=== PATIENT | male | born 1935 | race Caucasian/White ===

== ENCOUNTER 2020-02-02 13:31 | Outpatient (CLI) | payer MEDICARE | END 2020-02-02 13:32 | disposition critical access hospital (66) | LOC: EMS 13:31 | PROVIDERS: ATTEND Surgery | DX: R55 Syncope and collapse (principal) | CPT/HCPCS: A0425; A0427 ==

== ENCOUNTER 2020-02-02 14:02 | Emergency (ER) | payer MEDICARE ==
--- NOTE | 2020-02-02 14:19 | ED Physician Documentation ---
History of Present Illness - Stated complaint Stated Complaint: ALOC - Chief complaint Chief Complaint: Neuro - Additonal information Additional information: 84-year-old male brought into the emergency department for altered level of consciousness and a syncopal event. This gentleman reports to me that he was trying to appraise the house and he fainted. He did does not remember feeling ill or having chest pain or shortness of breath. He last remembered being in the house and then waking up in the ambulance. EMS was concerned that he may have had garbled speech though his speech is fluid for me. EMS reported as well that they felt he was posictal, though no seizure activity had been witnessed or reported He is somewhat confused. Reports that he lives in [place] but was driven up to [facility] to complete a house appraisal. He is unsure of medications he takes or his past medical history. He does report that he has fainted many times in the past but they always let him out of the hospital. 1520: Nursing staff has called the patient's pharmacy and obtain a list of medications. It does appear that he is taking 2 seizure medications therefore the loss of consciousness and single episode may be related to a seizure history. Review of Systems Constitutional: denies: Fever, Chills Cardiac: denies: Chest pain / pressure, Palpitations Respiratory: denies: Dyspnea, Cough GI: denies: Abdominal Pain, Nausea, Vomiting : denies: Dysuria Skin: reports: Reviewed and negative Musculoskeletal: reports: Reviewed and negative Neurologic: reports: Difficulty speaking (on scene with ems?), Syncope, Confuse d, Altered mental status, LOC. denies: Headache, Head injury Psychiatric: denies: Depressed, Suicidal Endocrine: reports: Reviewed and negative PD PAST MEDICAL HISTORY - Present Medications Home Medications: Ambulatory Orders Medication Instructions Recorded Confirmed Clopidogrel [Plavix] 75 mg PO DAILY 02/02/20 02/02/20 Levetiracetam [Keppra] 3,000 mg PO DAILY 02/02/20 02/02/20 Metoprolol Succinate [Toprol Xl] 25 mg PO DAILY 02/02/20 02/02/20 Perampanel [Fycompa] 8 mg PO DAILY 02/02/20 02/02/20 Topiramate [Topamax] 200 mg PO BID 02/02/20 02/02/20 lamoTRIgine [Lamictal] 400 mg PO DAILY 02/02/20 02/02/20 - Allergies Allergies/Adverse Reactions: Allergies Allergy/AdvReac Type Severity Reaction Status Date / Time No Known Drug Allergies Allergy Verified 02/02/20 14:12 PD ED PE EXPANDED - General General: Alert, No acute distress, Well developed/nourished (gentleman is wearing a business suit) - HEENT HEENT: PERRL, EOMI, Moist mucous membranes - Neck Neck: No tenderness. No: JVD present - Cardiac Cardiac: Regular Rate, Murmur Present, Radial strong equal, Pedal strong equal, Cap refill < 2 sec - Respiratory Respiratory: Clear to ausultation elva. No: Distress, Labored - Abdomen Abdomen: Normal Bowel sounds. No: Tender to palpation - Derm Derm: Normal color. No: Rash - Neuro Neuro: Confused, CNII-XII intact, Normal finger nose, Normal speech - GCS Eye Opening: Spontaneous Motor: Obeys Commands Verbal: Confused Total: 14 Results - Vitals Vitals: Vital Signs - 24 hr 02/02/20 02/02/20 14:07 14:53 Temperature 36.6 C Heart Rate 85 84 Respiratory 16 23 Rate Blood Pressure 134/80 H O2 Saturation 98 95 Oxygen O2 Source Room air - EKG (time done) 1415 Rate: Rate (enter#) (84) Rhythm: NSR [place]: Normal Intervals: Normal [place] QRS: Normal Ischemia: Q waves (inferior) Compare to prior EKG: Old EKG unavailable Computer interpretation: Agree with computer - Labs Labs: Laboratory Tests 02/02/20 02/02/20 02/02/20 15:01 15:01 15:01 WBC 7.9 RBC 4.75 Hgb 15.4 Hct 47.3 MCV 99.6 H MCH 32.4 H MCHC 32.6 RDW 12.6 Plt Count 212 MPV 9.0 Neut # (Auto) 5.8 Lymph # (Auto) 1.0 L Cassia # (Auto) 0.6 Eos # (Auto) 0.3 Baso # (Auto) 0.1 Absolute Nucleated RBC 0.00 Nucleated RBC % 0.0 PT INR Sodium 140 Potassium 4.1 Chloride 106 Carbon Dioxide 25 Anion Gap 9.0 BUN 36 H Creatinine 1.2 Estimated GFR (MDRD) 58 L Glucose 106 H Calcium 9.3 Total Bilirubin 0.7 AST 20 ALT 21 Alkaline Phosphatase 78 Troponin I High Sens 8.6 Total Protein 6.5 L Albumin 4.1 Globulin 2.4 Albumin/Globulin Ratio 1.7 Lipase 32 Urine Color Urine Clarity Urine pH Ur Specific Douglas Urine Protein Urine Glucose (UA) Urine Ketones Urine Occult Blood Urine Nitrite Urine Bilirubin Urine Urobilinogen Ur Leukocyte Esterase Ur Microscopic Review Urine Culture Comments 02/02/20 02/02/20 15:01 15:50 WBC RBC Hgb Hct MCV MCH MCHC RDW Plt Count MPV Neut # (Auto) Lymph # (Auto) Cassia # (Auto) Eos # (Auto) Baso # (Auto) Absolute Nucleated RBC Nucleated RBC % PT 12.9 H INR 1.2 Sodium Potassium Chloride Carbon Dioxide Anion Gap BUN Creatinine Estimated GFR (MDRD) Glucose Calcium Total Bilirubin AST ALT Alkaline Phosphatase Troponin I High Sens Total Protein Albumin Globulin Albumin/Globulin Ratio Lipase Urine Color YELLOW Urine Clarity CLEAR Urine pH 6.5 Ur Specific Douglas 1.020 Urine Protein TRACE Urine Glucose (UA) NEGATIVE Urine Ketones NEGATIVE Urine Occult Blood NEGATIVE Urine Nitrite NEGATIVE Urine Bilirubin NEGATIVE Urine Urobilinogen 0.2 (NORMAL) Ur Leukocyte Esterase NEGATIVE Ur Microscopic Review NOT INDICATED Urine Culture Comments NOT INDICATED - Rads (name of study) CT head Radiology: Final report received (No CT evidence of acute intracranial process. Age-appropriate exam.) cxr Radiology: Final report received (Mild pulmonary vascular congestion. No focal infiltrate or pneumothorax.) PD MEDICAL DECISION MAKING - ED course Complexity details: reviewed results, re-evaluated patient, considered differential, d/w patient ED course: This is an 84-year-old well-appearing gentleman that was brought to the emergency department for a syncopal event. Patient lives in [place] and was [place]. Patient was somewhat confused and was unsure of his medical history or the medications he takes. EMS had reported that he may appeared post ictal though no seizure activity has been reported. Nursing staff was able to obtain a list of his medications and it does include to antiepileptics. His EKG is nonischemic. No previous for comparison. High-sensitivity troponin unremarkable. Chest x-ray shows some mild pulmonary vascular congestion but patient has no hypoxia, tachypnea crackles or rails. Urine showed no s/s of infection His CT scan did not show any acute focal abnormalities and was noted to be normal for age. Given that this gentleman is on 3 different antiepileptics is likely that the syncope was a seizure. When I reevaluated the patient I asked about his history of seizures and he was able to confirm this. At this time this gentleman is medically stable and will be discharged home to follow-up with his primary care provider. It was advised that he needs to make sure that he always takes his antiepileptic drugs as prescribed. Departure - Departure Disposition: Home, Self Care Clinical Impression: Seizure Syncope Qualifiers: Syncope type: unspecified Qualified Code(s): R55 - Syncope and collapse Condition: Stable Record reviewed to determine appropriate education?: Yes Instructions: Epilepsy Dx Comments: Bernardino it sounds like you likely had a seizure this afternoon. That is the most likely cause of your fainting and altered level of consciousness. Today your labs are fairly unremarkable. The head CT did not show any worrisome findings. Your EKG and labs do not suggest you are having a heart attack. Please always take your seizure medications as prescribed. If you find that you are having increased frequency of seizures you may need to see your primary doctor or a neurologist to discuss medication adjustments.
--- NOTE | 2020-02-02 14:46 | XRAY Report ---
PROCEDURE: Chest 1 View X-Ray INDICATIONS: Chest Pain TECHNIQUE: One view of the chest was acquired. COMPARISON: None FINDINGS: Surgical changes and devices: None. Lungs and pleura: No pleural effusions or pneumothorax. Mild pulmonary vascular congestion is seen. No focal infiltrate. Mediastinum: Mildly tortuous thoracic aorta is noted. Heart size is normal. Bones and chest wall: No suspicious bony lesions. Overlying soft tissues appear unremarkable. IMPRESSION: Mild pulmonary vascular congestion. No focal infiltrate or pneumothorax. Reviewed by: Kj Champion MD on 02/02/2020 1:45 PM [facility] Approved by: Kj Champion MD on 02/02/2020 1:45 PM [facility] Station ID: [id number]
--- NOTE | 2020-02-02 14:56 | CT Report ---
PROCEDURE: HEAD WO INDICATIONS: ALOC; syncope; garbled speech TECHNIQUE: Noncontrast 4.5 mm thick angled axial sections acquired from the foramen magnum to the vertex. For r adiation dose reduction, the following was used: automated exposure control, adjustment of mA and/or kV according to patient size. COMPARISON: None. FINDINGS: Image quality: Adequate. There is motion artifact.. CSF spaces: Basal cisterns are patent. No extra-axial fluid collections. Ventricles are normal in size and shape. Brain: No midline shift. No intracranial masses or hemorrhage. Maria-white matter interface is norm al. Skull and face: Calvarium and visualized facial bones are intact, without suspicious lesions. Sinuses: Visualized sinuses and mastoids are clear. IMPRESSION: 1. No CT evidence of acute intracranial process. 2. Age-appropriate exam. Reviewed by: Radha Hwang MD on 02/02/2020 2:55 PM PST Approved by: Radha Hwang MD on 02/02/2020 2:55 PM PST Station ID: [id number]
[2020-02-02 15:08] LABS: BASOPHILS # (AUTO) 0.1 10^3/uL (0.0-0.1); EOSINOPHILS # (AUTO) 0.3 10^3/uL (0.0-0.7); EOSINOPHILS % (AUTO) 3.6 %; HGB - HEMOGLOBIN 15.4 g/dL (14.0-18.0); LYMPHOCYTES % (AUTO) 12.8 %; MEAN CORPUSCULAR HEMOGLOBIN 32.4 pg (27.0-31.0); MEAN CORPUSCULAR HGB CONC 32.6 g/dL (32.0-36.0); MEAN CORPUSCULAR VOLUME 99.6 fL (80.0-94.0); MONOCYTES # (AUTO) 0.6 10^3/uL (0.0-1.0); MONOCYTES % (AUTO) 8.1 %; NEUTROPHILS # (AUTO) 5.8 10^3/uL (1.5-6.6); PLT - PLATELET COUNT 212 10^3/uL (130-450); RED BLOOD COUNT 4.75 10^6/uL (4.70-6.10); RED CELL DISTRIBUTION WIDTH 12.6 % (12.0-15.0); WHITE BLOOD COUNT 7.9 x10^3/uL (4.8-10.8)
[2020-02-02 15:22] LABS: ALBUMIN 4.1 g/dL (3.2-5.5); ALBUMIN/GLOBULIN RATIO 1.7 (1.0-2.2); BILIRUBIN,TOTAL 0.7 mg/dL (0.2-1.0); CALCIUM 9.3 mg/dL (8.5-10.3); CREATININE 1.2 mg/dL (0.6-1.2); TOTAL PROTEIN 6.5 g/dL (6.7-8.2)
[2020-02-02 15:34] LABS: INR 1.2 (0.8-1.2); PT - PROTHROMBIN TIME 12.9 secs (9.9-12.6)
[2020-02-02 16:04] LABS: BILIRUBIN,URINE NEGATIVE (NEGATIVE); CLARITY,URINE CLEAR (CLEAR); GLUCOSE, URINE (UA) NEGATIVE (NEGATIVE); KETONES,URINE (UA) NEGATIVE (NEGATIVE); LEUKOCYTE ESTERASE, URINE NEGATIVE (NEGATIVE); NITRITE,URINE NEGATIVE (NEGATIVE); OCCULT BLOOD,URINE NEGATIVE (NEGATIVE); PH,URINE 6.5 PH (5.0-7.5); PROTEIN,URINE TRACE mg/dL (NEGATIVE); UROBILINOGEN,URINE 0.2 (NORMAL) E.U./dL (NORMAL)
[2020-02-02 16:16] VITALS: BP 120/67
== END 2020-02-02 16:17 | disposition home or self-care (01) ==
LOC: ED 14:02
DX: R55 Syncope and collapse (principal); R56.9 Unspecified convulsions
CPT/HCPCS: 36415; 70450; 71045; 80053; 81001; 81003; 83690; 84484; 85025; 85610; 87086; 93005; 99283; 99284